=== PATIENT | male | born 1960 | race Caucasian/White ===

== ENCOUNTER 2024-04-12 09:20 | Emergency (ER) | payer MEDICARE, SELFPAY ==
[2024-04-12 09:30] VITALS: BP 127/67; PULSE 67; RESP 16; TEMP 36.6; O2SAT 100
--- NOTE | 2024-04-12 09:38 | ED.MALEGU ---
HPI - Male Genitourinary General Chief complaint: Urogenital-Male Stated complaint: Urinary Problem Time Seen by Provider: 04/12/24 09:38 Source: patient Mode of arrival: ambulatory Limitations: no limitations History of Present Illness HPI Narrative: 63-year-old male presents with complaint urinary frequency, urgency, pressure for 2-3 weeks. Symptoms getting progressively worse. Has been fatigued for 1 week. Afebrile. Denies nausea vomiting. No back or abdominal pain. Patient does not have a primary care physician. States ?could be my prostate ?. Denies rectal pain. All systems reviewed and negative except as noted above. Related Data Allergies Allergy/AdvReac Type Severity Reaction Status Date / Time Penicillins Allergy Rash Verified 04/12/24 09:47 phenobarbital Allergy Unknown Verified 04/12/24 09:48 Review of Systems Review of Systems: CONSTITUTIONAL: Denies fever, chills, or sweats. EYES: Denies visual changes, redness, or discharge. ENT: Denies rhinorrhea, congestion, sore throat, or otalgia. CARDIOVASCULAR: Denies chest pain, palpitations, or edema. RESPIRATORY: Denies cough or dyspnea. GASTROINTESTINAL: Denies abdominal pain, nausea, vomiting, or diarrhea. GENITOURINARY: Denies dysuria and hematuria. Reports urinary frequency, urgency, pressure. SKIN: Denies rash or itching. MUSCULOSKELETAL: Denies back pain, joint pain, or myalgia. NEUROLOGIC: Denies headache, numbness, or weakness. PSYCHIATRIC: Denies anxiety or depression. All other systems reviewed are negative, except as documented in HPI. PMFSH Comments At time of signature, agree with nursing past medical, surgical, social and family history. There is no relevant family history pertinent to the presenting complaint. Exam Narrative: GENERAL: This is a well-nourished, well-developed patient, in no apparent distress. HEAD: normocephalic, atraumatic. EYES: PERRL. Sclera clear/white. Vision is grossly intact. EARS: External ears normal NOSE: External nose normal NECK: Neck supple, non-tender without lymphadenopathy, masses or thyromegaly. CARDIOVASCULAR: Regular rate and rhythm without murmurs, gallops, or rubs. RESPIRATORY: Clear to auscultation. Breath sounds equal bilaterally. No wheezes, rales, or rhonchi. SKIN: warm, Dry, intact with no suspicious lesions or rash, good texture and turgor. NEURO: awake, alert, and oriented to person, place and time. There were no obvious focal neurologic abnormalities. EXTREMITIES: No joint tenderness, effusion, or edema noted. Course Course Level of Care: Express Care Visit Vital Signs Vital signs: Vital Signs Temperature 36.6 C 04/12/24 09:30 Pulse Rate 67 04/12/24 09:30 Respiratory Rate 16 04/12/24 09:30 Blood Pressure 127/67 04/12/24 09:30 Pulse Oximetry 100 04/12/24 09:30 Oxygen Delivery Room Air 04/12/24 09:30 Temperature 36.6 C 04/12/24 09:30 Pulse Rate 67 04/12/24 09:30 Respiratory Rate 16 04/12/24 09:30 Blood Pressure 127/67 04/12/24 09:30 Pulse Oximetry 100 04/12/24 09:30 Oxygen Delivery Room Air 04/12/24 09:30 Reviewed MDM - Male Genitourinary MDM Narrative Medical decision making narrative: Patient is aware of diagnosis, understands and agrees to treatment plan. Anticipatory guidance given. Patient agrees to follow-up as directed and is aware of reasons to seek care at the emergency department. Portions of this record may have been created with voice recognition software Urine dip normal. Will treat patient with antibiotic due to his symptoms. Urine culture ordered. Referred to a primary care physician for further evaluation. Differential Diagnosis Differential diagnosis: Likely urinary tract infection, urethritis and prostatitis Lab Data Labs: Lab Results 04/12/24 Range/Units 09:40 POC Urine Color Yellow POC Urine Clarity Clear POC Urine pH 7.5 POC Ur Specif [place] 1.015 POC Urine Protein Negative
[2024-04-12 09:42] LABS: EDUAAPPEAR Clear; EDUABILI Negative; EDUABLOOD Negative; EDUACOLOR1 Yellow; EDUAGLUCOSE Negative; EDUAKETONE Negative; EDUALEUKO Negative; EDUANITRATE Negative; EDUAPH 7.5; EDUAPROTEIN Negative; EDUASPGRAVITY 1.015; EDUAUROBILI 0.2
== END 2024-04-12 09:55 | disposition home or self-care (01) ==
PROVIDERS: Emergency Provider Nurse Practitioner Family
DX: N39.0 Urinary tract infection, site not specified (principal)
CPT/HCPCS: 81003; 87086; 99213; G0463